=== PATIENT | female | born 1985 | race Caucasian/White ===

== ENCOUNTER 2022-11-12 19:28 | Emergency (ER) | payer BC, OTHER ==
[2022-11-12 19:50] VITALS: BP 101/61; PULSE 85; RESP 16; TEMP 99.2; BMI 26.6
[2022-11-12 19:54] LABS: HCG,QUALITATIVE URINE Negative
[2022-11-12 20:11] LABS: EPITHELIAL CELLS FEW /hpf
[2022-11-12 20:31] LABS: HEMATOCRIT 33.8 % (32.4-45.2); HEMOGLOBIN 11.1 G/dL (10.7-15.3); MCH 24.8 pg (25.7-33.7); MCHC 32.8 g/dl (32.0-36.0); MEAN CELL VOLUME 75.7 fl (80-96); MEAN PLT VOLUME 8.6 fl (7.5-11.1); PLATELET COUNT 249.2 10^3/uL (134-434); RBC 4.47 10^6/uL (3.60-5.2); RDW 16.7 % (11.6-15.6); WHITE BLOOD COUNT 6.7 10^3/uL (4.0-10.8)
[2022-11-12 20:41] LABS: ALBUMIN 3.8 g/dl (3.4-5.0); BILIRUBIN,TOTAL 0.2 mg/dl (0.2-1); BLOOD UREA NITROGEN 6.5 mg/dl (7-18); CALCIUM 8.4 mg/dl (8.5-10.1); CREATININE 0.6 mg/dl (0.6-1.3); POTASSIUM 3.8 mmol/L (3.5-5.1); SGOT/AST 17.2 U/L (15-37); SGPT/ALT 19.5 U/L (7-52); TOT PROT 6.7 g/dl (6.4-8.2)
[2022-11-12 21:05] LABS: ANISOCYTOSIS 1+
[2022-11-12 21:06] LABS: OVALOCYTE 1+
[2022-11-12] MEDS ORDERED: ACETAMINOPHEN 1000 MG/100 ML BAG IVPB ONE (22:43)
[2022-11-12] MEDS ORDERED: ACETAMINOPHEN INJECTION 100 ML IVPB ONE (22:47)
== END 2022-11-13 00:44 | disposition home or self-care (01) ==
LOC: FER 19:28
PROC: 3E03329 Introduction of Other Anti-infective into Peripheral Vein, Percutaneous Approach (ICD-10-PCS; principal; 2022-11-12)
PROC: 3E033GC Introduction of Other Therapeutic Substance into Peripheral Vein, Percutaneous Approach (ICD-10-PCS; 2022-11-12)
DX: R10.30 Lower abdominal pain, unspecified (principal); N39.0 Urinary tract infection, site not specified
CPT/HCPCS: 36415; 74177-TC; 80053; 81003; 81015; 83690; 84703; 85027; 87086; 87186; 99285-25; Q9967